=== PATIENT | female | born 1960 | race Caucasian/White ===

== ENCOUNTER 2022-04-14 07:37 | Emergency (ER) | payer OTHER, BC ==
[2022-04-14 08:13] LABS: BASOPHILS # (AUTO) 0.1 10^3/uL (0.0-0.1); BASOPHILS % (AUTO) 1.3 %; EOSINOPHILS # (AUTO) 0.1 10^3/uL (0.0-0.7); EOSINOPHILS % (AUTO) 1.9 %; HCT - HEMATOCRIT 42.3 % (37.0-47.0); HGB - HEMOGLOBIN 14.3 g/dL (12.0-16.0); LYMPHOCYTES # (AUTO) 1.6 10^3/uL (1.5-3.5); LYMPHOCYTES % (AUTO) 41.6 %; MEAN CORPUSCULAR HEMOGLOBIN 32.6 pg (27.0-31.0); MEAN CORPUSCULAR HGB CONC 33.8 g/dL (32.0-36.0); MEAN CORPUSCULAR VOLUME 96.4 fL (81.0-99.0); MEAN PLATELET VOLUME 9.9 fL (7.9-10.8); MONOCYTES # (AUTO) 0.3 10^3/uL (0.0-1.0); NEUTROPHILS # (AUTO) 1.8 10^3/uL (1.5-6.6); NEUTROPHILS % (AUTO) 46.9 %; PLT - PLATELET COUNT 197 10^3/uL (130-450); RED BLOOD COUNT 4.39 10^6/uL (4.20-5.40); RED CELL DISTRIBUTION WIDTH 12.4 % (12.0-15.0); WHITE BLOOD COUNT 3.8 x10^3/uL (4.8-10.8)
[2022-04-14] MEDS: SODIUM CHLORIDE 0.9% 1,000 ML IV STA (08:13)
[2022-04-14] MEDS: ONDANSETRON 4 MG/2 ML VIAL IVP STA (08:16)
[2022-04-14] MEDS: diazePAM INJ 5 MG/ML SYRINGE IVP STA (08:37)
[2022-04-14 08:51] LABS: ALBUMIN 4.6 g/dL (3.2-5.5); ALBUMIN/GLOBULIN RATIO 1.8 (1.0-2.2); BILIRUBIN,TOTAL 0.8 mg/dL (0.2-1.0); CALCIUM 9.9 mg/dL (8.5-10.3); CREATININE 0.7 mg/dL (0.4-1.0); POTASSIUM 4.3 mmol/L (3.5-5.0); TOTAL PROTEIN 7.2 g/dL (6.7-8.2)
[2022-04-14] MEDS: MECLIZINE 12.5 MG TABLET PO STA (09:17)
[2022-04-14 09:29] VITALS: BP 129/83
--- NOTE | 2022-04-14 09:42 | CT Report ---
PROCEDURE: HEAD WO INDICATIONS: vertigo TECHNIQUE: Noncontrast 4.5 mm thick angled axial sections acquired from the foramen magnum to the vertex. For r adiation dose reduction, the following was used: automated exposure control, adjustment of mA and/or kV according to patient size. COMPARISON: None. FINDINGS: Image quality: Excellent. CSF spaces: Basal cisterns are patent. No extra-axial fluid collections. Ventricles are normal in size and shape. Brain: No midline shift. No intracranial masses or hemorrhage. Leone-white matter interface is norm al. Skull and face: Calvarium and visualized facial bones are intact, without suspicious lesions. Sinuses: Visualized sinuses and mastoids are clear. IMPRESSION: No acute intracranial abnormality. Reviewed by: Carlos Taylor on 04/14/2022 8:41 AM [place] Approved by: Carlos Taylor on 04/14/2022 8:41 AM LYNNETTE Station ID: [id number]
--- NOTE | 2022-04-14 10:08 | ED Physician Documentation ---
History of Present Illness - Stated complaint Stated Complaint: DIZZY/LIGHT HEADED - Chief complaint Chief Complaint: Neuro - History obtained from History obtained from: Patient - Additonal information Additional information: The patient comes to the emergency department with chief complaint of vertigo for the last couple of days. She states it's worse if she changes position or turns her head, and the worst if she is up trying to walk. She's had some associated N/V. No head injury. No focal deficits. No incoordination at rest. She did have covid and shingles in the past month. No current fever, chills, fatigue, or upper respiratory sx. She feels a mild sense of vertigo while sitting in the bed. Review of Systems Ten Systems: 10 systems reviewed and negative Constitutional: reports: Reviewed and negative Eyes: reports: Reviewed and negative Ears: reports: Reviewed and negative Nose: reports: Reviewed and negative Throat: reports: Reviewed and negative Cardiac: reports: Reviewed and negative Respiratory: reports: Reviewed and negative GI: reports: Nausea, Vomiting : reports: Reviewed and negative Skin: reports: Reviewed and negative Musculoskeletal: reports: Reviewed and negative Neurologic: reports: Other (vertigo) Psychiatric: reports: Reviewed and negative Endocrine: reports: Reviewed and negative Immunocompromised: reports: Reviewed and negative PD PAST MEDICAL HISTORY - Past Medical History Past Medical History: Yes Cardiovascular: High cholesterol Respiratory: None Neuro: Headaches Endocrine/Autoimmune: None GI: None SECOND RIGGER: None : None HEENT: None Psych: None Musculoskeletal: None Derm: None - Past Surgical History Past Surgical History: No - Present Medications Home Medications: Ambulatory Orders Medication Instructions Recorded Confirmed Meclizine HCl [Antivert] 50 mg PO Q6H PRN #24 tablet 04/14/22 Ondansetron Odt [Zofran] 4 mg TL Q6H PRN #10 tablet 04/14/22 SUMAtriptan [Imitrex] 25 mg PO ONCE PRN 04/14/22 04/14/22 - Allergies Allergies/Adverse Reactions: Allergies Allergy/AdvReac Type Severity Reaction Status Date / Time Sulfa (Sulfonamide Allergy Itching Verified 04/14/22 07:43 Antibiotics) - Social History Does the pt smoke?: No Smoking Status: Never smoker Does the pt drink ETOH?: Yes Does the pt have substance abuse?: No - Immunizations Immunizations are current?: Yes PD ED PE NORMAL - Vitals Vital signs reviewed: Yes - General General: Alert and oriented X 3, No acute distress, Well developed/nourished - HEENT HEENT: Atraumatic, PERRL, EOMI, Moist mucous membranes - Neck Neck: Supple, no meningeal sign - Cardiac Cardiac: RRR, No murmur, Strong equal pulses - Respiratory Respiratory: No respiratory distress, Clear bilaterally - Abdomen Abdomen: Soft, Non tender, Non distended - Derm Derm: Normal color, Warm and dry, No rash - Extremities Extremities: No deformity, No edema - Neuro Neuro: Alert and oriented X 3, 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, No motor deficit, No sensory deficit, Normal speech, Other (No ataxia) - Psych Psych: Normal mood, Normal affect Results - Vitals Vitals: Oxygen O2 Source Room air - Labs Labs: Laboratory Tests 04/14/22 04/14/22 08:10 08:10 WBC 3.8 L RBC 4.39 Hgb 14.3 Hct 42.3 MCV 96.4 MCH 32.6 H MCHC 33.8 RDW 12.4 Plt Count 197 MPV 9.9 Neut # (Auto) 1.8 Lymph # (Auto) 1.6 [place] # (Auto) 0.3 Eos # (Auto) 0.1 Baso # (Auto) 0.1 Absolute Nucleated RBC 0.00 Nucleated RBC % 0.0 Sodium 140 Potassium 4.3 Chloride 103 Carbon Dioxide 29 Anion Gap 8.0 BUN 17 Creatinine 0.7 Estimated GFR (MDRD) 85 L Glucose 97 Calcium 9.9 Total Bilirubin 0.8 AST 23 ALT 28 Alkaline Phosphatase 27 L Total Protein 7.2 Albumin 4.6 Globulin 2.6 Albumin/Globulin Ratio 1.8 Lipase 29 - Rads (name of study) CT head Radiology: Final report received, EMP read indepedently, See rad report (neg) PD MEDICAL DECISION MAKING - ED course Complexity details: reviewed results, re-evaluated patient, considered differential, d/w patient, d/w family ED course: Pt was given IV fluids and treated with zofran, valium and meclizine, and worked up with labs and head CT, all of which were unremarkable. Pt was feeling much better on re-evaluation. We discussed potential causes of her sx, the expected duration of sx, and the usual indications for return. Departure - Departure Disposition: 01 Home, Self Care Clinical Impression: Benign positional vertigo Qualifiers: Laterality: unspecified laterality Qualified Code(s): H81.10 - Benign paroxysmal vertigo, unspecified ear Condition: Stable Instructions: ED BPV Vertigo Prescriptions: Meclizine HCl [Antivert] 50 mg PO Q6H PRN #24 tablet PRN Reason: Vertigo Ondansetron Odt [Zofran] 4 mg TL Q6H PRN #10 tablet PRN Reason: Nausea / Vomiting Comments: Your labs and CT scan look good. There is no evidence of an emergent or serious cause of the vertigo you are having. Your symptoms are most consistent with peripheral vertigo, which is generally caused by an issue with the nerves or inner ear structures of the ear. As we discussed, sometimes this can be caused by a virus that has inflamed the nerves that sense movement and position, causing them to send excessive and inappropriate signals of movement to the brain. Other instances of vertigo can be caused by calcium deposits that settle down on the hair-like nerve projections within the fluid-filled semi-circular canals of your inner ear, once again causing excessive and inappropriate signals to the brain, telling it that movement is occurring that actually is not. The medication will help but generally, both of these conditions are self-limited and ultimately, will resolve on their own. You may take the meclizine prescribed to help with the vertigo itself, and you may take the Zofran as needed for nausea. Please follow-up with your primary care physician if you are not feeling better after the next 2 weeks. In general, symptoms can last anywhere from a day to several weeks, depending on the cause and severity of the underlying condition. Discharge Date/Time: 04/14/22 10:28
== END 2022-04-14 10:28 | disposition home or self-care (01) ==
LOC: ED 07:37
DX: H81.10 Benign paroxysmal vertigo, unspecified ear (principal)
CPT/HCPCS: 36415; 70450; 80053; 83690; 85025; 96374; 96375; 99283; 99284; A9270

== ENCOUNTER 2024-03-23 08:00 | Outpatient (CLI) | payer BC, OTHER ==
--- NOTE | 2024-03-24 08:50 | XRAY Report ---
PROCEDURE: Foot 3+V LT INDICATIONS: PAIN IN LEFT FOOT TECHNIQUE: 3 views of the foot were acquired. COMPARISON: None. FINDINGS: Bones: No fractures or dislocations. Left foot are seen arthritis is seen with mild joint space narr owing and subchondral sclerosis. Small plantar and dorsal calcaneal enthesophytes are seen. No suspic ious bony lesions. Soft tissues: No tibiotalar joint effusion. Achilles tendon appears normal. IMPRESSION: No left foot fracture or dislocation. Leftward osteoarthritis. No suspicious bony lesions. Calcaneal enthesophytes. Reviewed by: Dusty Haji MD on 03/24/2024 8:49 AM PDT Approved by: Dusty Haji MD on 03/24/2024 8:49 AM PDT Station ID: [id number]
== END 2024-03-23 23:59 | disposition home or self-care (01) ==
LOC: DI.S 08:00
PROVIDERS: ATTEND Registered Nurse
DX: M19.072 Primary osteoarthritis, left ankle and foot (principal); M77.32 Calcaneal spur, left foot